=== PATIENT | female | born 1935 | race Caucasian/White ===

== ENCOUNTER 2018-04-20 00:40 | Inpatient (IN) | payer OTHER ==
[~2018-04-20] VITALS: Ht 167.6 cm; Wt 125.4 kg
--- NOTE | 2018-04-20 02:39 | RADIOLOGY REPORT ---
EXAMINATION: RIGHT FOOT AND ANKLE 6 VIEWS CLINICAL INFORMATION: Pain after fall. COMPARISON: None. TECHNIQUE: AP, lateral, oblique views of the right foot were obtained in addition to AP, lateral and oblique views of the right ankle. FINDINGS: There is a transverse fracture through the medial malleolus. There is disruption to the relationship between the distal tibia and the talus. There is an oblique distal fibular fracture. There is diffuse soft tissue swelling. There is a small calcaneal spur at the Achilles insertion site. There is a moderate-sized calcaneal spur along the plantar surface. IMPRESSION: Distal right tibial and fibular fractures with disruption of the relationship between the distal tibia and talus. Diffuse soft tissue swelling. Calcaneal spurs.
[2018-04-20 03:34] LABS: ABSOLUTE BASOPHIL COUNT 0.1 /CUMM (0.0-0.2); ABSOLUTE EOSINOPHIL COUNT 0 /CUMM (0.0-0.7); ABSOLUTE GRANULOCYTE CT 14.9 /CUMM (1.4-6.5); ABSOLUTE LYMPH COUNT 0.9 /CUMM (1.2-3.4); ABSOLUTE MONOCYTE COUNT 0.8 /CUMM (0.10-0.60); BASOPHIL % 0.3 % (0.0-2.0); EOSINOPHIL % 0.2 % (0-5); HEMATOCRIT 39.3 % (37-47); MEAN CORPUSCULAR HGB 30.1 PG (27.0-31.0); MEAN CORPUSCULAR HGB CONC 32.8 G/DL (33.0-37.0); MEAN CORPUSCULAR VOLUME 91.7 FL (81.0-99.0); MEAN PLATELET VOLUME 7.6 FL (7.4-10.4); PLATELET COUNT 250 /CUMM (130-400); RBC DISTRIBUTION WIDTH 15.8 % (11.5-14.5); RED BLOOD CELL CT 4.29 /CUMM (4.20-5.40)
[2018-04-20 03:43] LABS: PT 28.4 SEC (9.4-12.5); PTT 35 SEC (25-37)
[2018-04-20 03:54] LABS: WHITE BLOOD CELL COUNT 16.7 /CUMM (4.8-10.8)
--- NOTE | 2018-04-20 05:01 | RADIOLOGY REPORT ---
EXAMINATION: XR ANKLE, RIGHT CLINICAL INFORMATION: Fracture postreduction. COMPARISON: Same day right ankle radiographs. TECHNIQUE: AP and lateral of the right ankle. FINDINGS: Again identified are distal right tibial and fibular fractures. There is persistent lateral displacement to the talus and marked disruption to the tibiotalar relationship. An overlying cast is in place. IMPRESSION: Persistent disruption to the tibiotalar joint. Distal right tibial and fibular fractures identified with overlying cast in place.
--- NOTE | 2018-04-20 05:27 | History & Physical ---
Vick Alberts 04/20/18 0526: General Information and HPI MD Statement: I have seen and personally examined HUMBLE MORENO and documented this H&P. The patient is a 83 year old F who presented with a patient stated chief complaint of [right sided ankle fracture]. Source of Information: patient, family Exam Limitations: physical impairment History of Present Illness: The patient is an 83-year-old lady with past medical history significant for atrial fibrillation (on warfarin), hypertension, bilateral deep venous thrombosis in lower extremities and pulmonary embolism (10 years ago), gout, and spinal stenosis who presented to ER with fracture of right ankle after a mechanical fall. The patient was home when she was going to make a phone call and could not see the ice cubes on the kitchen floor, and she slipped on the ice cubes and fell backward on the floor. She remembers the whole event, she denies any dizziness, vertigo, shortness of breath, chest pain, palpitation, nausea, vomiting, aura, headache, or unusual feeling before this event. She did not hit her head, or upper extremities. She denies any pain in her body other than right ankle. She denies any signs of orthostatic hypotension, she uses a walker to ambulate, she gets shortness of breath after walking short distance (she has states 10 feet), and she does not walk up or down the stairs due to spinal stenosis that she has. She does not have any history of stroke, cardiac disease, or problem with anesthesia that she had before. She denies any pulmonary disease. She takes 5 mg of warfarin 4 times per week and 2.5 mg 3 times a week. Her primary care physician is Dr. Weston Vargas, and she is states that he is the only doctor that she has. The patient had a misplaced distal right tibial and fibular fractures, which was reduced by emergency department physician and confirmed reduction by a second x- ray. Peripheral perfusion and sensation were checked after reduction which were normal and similar to the left side. Allergy: She is allergic to lisinopril and causes cough Past medical history: Atrial fibrillation (on warfarin), hypertension, bilateral deep venous thrombosis in lower extremities and pulmonary embolism (10 years ago), gout, and spinal stenosis, diabetes mellitus on metformin Past surgical history: Cholecystectomy, left knee replacement, right-sided cataract surgery Family history: Noncontributory Social history: She has a smoke cigars in her 30s for a short period of time, occasional use of alcohol like 1 or 2 drinks every 2 weeks, and she denies any recreational drug use. Allergies/Medications Allergies: Coded Allergies: lisinopril (COUGH 04/20/18) Compliance With Home Meds: GOOD Past History Travel History Traveled to [place] past 21 day No Medical History Neurological: NONE EENT: NONE Cardiovascular: hypertension Respiratory: pulmonary embolism, DVT Gastrointestinal: NONE Hepatic: NONE Renal: NONE Musculoskeletal: L KNEE REPLACEMENT Psychiatric: NONE Endocrine: NONE Influenza Vaccine: 05/05/13 Surgical History Surgical History: cholecystectomy, knee replacement Review of Systems Review of Systems Constitutional: Reports: see HPI. Exam & Diagnostic Data Last 24 Hrs of Vital Signs/I&O Vital Signs Date Time Temp Pulse Resp B/P B/P Pulse O2 O2 Flow FiO2 Mean Ox Delivery Rate 04/20 0625 97.8 74 18 150/63 97 Room Air 04/20 0323 97.9 88 22 144/78 98 04/20 0051 84 20 135/61 97 Physical Exam General Appearance Alert, Oriented X3, Cooperative, Moderate Distress Skin No Rashes, Multiple nevi on back Skin Temp/Moisture Exam: Warm/Dry Sepsis Skin Exam (color): Normal for Ethnicity HEENT Atraumatic, EOMI, Mucous Membr. moist/pink, Lt sided pupil larger than right side, both reactive to light Neck Supple, No JVD Cardiovascular Regular Rate, Normal S1, Normal S2 Lungs Clear to Auscultation, Normal Air Movement Abdomen Normal Bowel Sounds, Soft, No Tenderness, No Hepatospenomegaly Neurological Normal Speech, Strength at 5/5 X4 Ext, Normal Tone, Sensation Intact, Cranial Nerves 3-12 NL, Normal sensation on both feet and LE Extremities Right foot was in splint, good peripheral perfusion in RLE and intact sensation. Vascular Normal Pulses, Pulses Symmetrical Sepsis Peripheral Pulse Location: Dorsalis Pedis Sepsis Peripheral Pulse Exam: Normal Sepsis Cap Refill Exam: <2 Sec Diagnostic Data EKG Results Normal sinus rhythm, low voltage, flattening of T wave in leads III and aVF, Other Results Ankle x-ray: Persistent disruption to the tibiotalar joint. Distal right tibial and fibular fractures identified with overlying cast in place. Assessment/Plan Assessment: The patient is an 83-year-old female, with past medical history significant for atrial fibrillation on warfarin, hypertension, bilateral DVT and pulmonary emboli about 10 years ago, gout, and spinal stenosis who has presented to ED with chief complaint of mechanical fall and fracture of right distal fibula and tibia. Fall and right sided ankle fracture: Based on history and past medical records of this patient this episode of fall was mechanical and there is no medical components on this fall. The EKG has shown flattened T waves in leads III and aVF, but this is a low voltage EKG. this mechanical fall has caused fracture of right distal fibular and tibia. This fracture was displaced, and then reduce in ED. The patient is on warfarin and INR is 2.58, if the patient is planned for surgery for today we need to give the patient something like vitamin K to reverse the INR, or FFP if needed. Plan: Monitor the patient, repeat EKG and troponin, orthopedic surgeon consult was placed, the patient will be held n.p.o. for possible surgery. Leukocytosis: The patient has a white BC count of 16.7, based on the history and physical examination no source of infection is identified. This leukocytosis is reactional to the pain and fracture that she has had. Plan: We will repeat the white BC count once the patient is stabilized regarding to the ankle fracture. Atrial fibrillation: The patient has a history of atrial fibrillation and she was on warfarin for that reason. Plan: We will hold warfarin since the patient might need surgery, we will wait for the decision by orthopedic surgeon. Gout: The patient has a two-year history of gout and is taking allopurinol. Plan: Home medication will be continued. Hypomagnesemia: The patient has a magnesium level of 1.5 Plan: P.o. magnesium will be sore for patient to replete serum magnesium Discrepancy in his pupils size: Left pupil was larger than right. Both were reactive to light. Plan: It might be reasonable to do brain MRI for patient to find any possible causes of this focal neurological deficit as outpatient since this is not acute. Diabetes mellitus: The patient has type 2 diabetes mellitus and is currently on 500 mg of metformin Plan: Metformin will be held and blood sugar will be covered with sliding scale insulin As Ranked By This Provider Problem List: 1. Trimalleolar fracture of ankle, open 2. Displaced trimalleolar fracture of right lower leg, initial encounter for open fracture type I or II Core Measures/Misc (04/21) Acute Coronary Syndrome ACS Diagnosis: No Congestive Heart Failure Congestive Heart Failure Diagnosis No Cerebrovascular Accident CVA/TIA Diagnosis: No VTE (View Protocol) VTE Risk Factors Age>40 No Mechanical VTE Prophylaxis d/t N/A MechProphylax Ordered No VTE Pharm Prophylaxis d/t Surgical Contraindication Sepsis (View protocol) Sepsis Present: No If YES complete Sepsis Event Note If YES complete Sepsis Event Note Rodrigo Vallecillo MD 04/20/18 0724: General Information and HPI Allergies/Medications Home Med list Allopurinol 300 MG TABLET 1 TAB PO DAILY GOUT (Reported) Atorvastatin Calcium 20 MG TABLET 1 TAB PO DAILY HEART (Reported) Cholecalciferol (Vitamin D3) (Vitamin D) 2,000 UNIT CAPSULE 1 CAP PO DAILY VITAMIN SUPPLEMENT (Reported) Hydrocodone/Acetaminophen (Hydrocodon-Acetaminophen 5-325) 5 MG-325 MG TABLET 1 TAB PO BIDP PRN PAIN (Reported) Metformin HCl 500 MG TABLET 1 TAB PO DAILY DM (Reported) Valsartan/Hydrochlorothiazide (Valsartan-Hctz 320-25 MG Tab) 320 MG-25 MG TABLET 1 TAB PO DAILY HTN (Reported) Warfarin Sodium (Coumadin) 5 MG TABLET 1 TAB PO DAILY A.fib (Reported) Core Measures/Misc (04/21) Sepsis (View protocol) If YES complete Sepsis Event Note If YES complete Sepsis Event Note Resident Review Statement Resident Statement: examined this patient, discussed with administration internship, agreed with administration internship, reviewed EMR data (avail), amended to note Other Findings: Patient is an 83-year-old female with past medical history significant for atrial fibrillation on Coumadin, history of pulmonary embolism and DVTs, spinal stenosis, gout, hypertension presenting this admission with chief complaint of fall and right foot pain. Patient reports that prior to coming and she was walking in her kitchen and had not noticed that there were ice cubes on the floor and tripped and fell backwards. Reports landing on her bottom. Denies any head trauma or loss of consciousness. Denies chest pain, palpitations, lightheadedness, dizziness, feeling of warmth prior to falling. Reports significant left foot pain described as a burning sensation. Patient in the ED he received morphine 4 mg IV 1, Zofran 4 mg IV 1, ceftezole and 1 g IV 1, fentanyl 100 g IV 1, Reglan 10 mg IV 1. X-ray showed a tri-malleolar fracture which was splinted. Patient denies any significant cardiac history aside from the atrial fibrillation. Denies history of SD or angina in the past. Reports she has never required a cardiac catheterization. States she currently only follows with her primary care physician, Weston Vargas MD. Patient reports shortness of breath with walking more than 1 block. Reports she cannot take stairs due to significant pain from her spinal stenosis. Patient denies any chest pain, palpitations, shortness breath, abdominal pain, nausea/vomiting, constipation/diarrhea, dysuria/hematuria. Past medical history: As above Past surgical history: Cholecystectomy, knee replacement, bilateral cataract surgery Social history: Quit smoking 50 years ago, occasional alcohol use, denies any illicit drug use, ambulates with a walker, lives with her daughter and grandson Allergies: Lisinopril Medications: Valsartan/hydrochlorothiazide 320/25 mg, metformin 500 mg, warfarin 5 mg, vitamin D, atorvastatin 20 mg, allopurinol Physical exam and labs/imaging as above Patient is an 83-year-old obese female with past medical history of atrial fibrillation on Coumadin, DVT, PE, history of spinal stenosis, gout, hypertension presenting this admission with a right trimalleolar fracture status post mechanical fall. Patient's x-ray findings significant for distal right tibial and fibular fractures along with disruption of the tibiotalar joint. Patient is hemodynamically stable. Labs significant for white count of 16.7 with 89% granulocytes. Sodium of 133, magnesium of 1.5, INR of 2.58. EKG shows sinus rhythm with some nonspecific T-wave changes in leads 23 and aVF. Urinalysis positive for nitrite and leukocyte esterase, 15-25 WBC and bacteria. Chest x-ray was negative for any acute cardiopulmonary process. Patient's calculated RCRI is 0 giving her 0.4% risk of major cardiac event if she were to undergo surgery. Patient however has not seen a stove mechanic and her last ECHO was many years ago. Further information from family revealed patient's health has been deteriorating recently. Patient should be seen by cardiology to obtain cardiac clearance prior to surgery. Problems: 1. Right trimalleolar fracture status post mechanical fall 2. EKG changes showing nonspecific T wave changes in inferior chantell 3. Leukocytosis likely reactive, no signs of infection 4. Asymptomatic bacteriuria 4. Hypomagnesemia 4. History of atrial fibrillation on Coumadin, spinal stenosis, gout, hypertension Plan: Admitted to general med Repeat EKG Ortho consult placed for possible surgery Nothing by mouth with IV fluid hydration Hold coumadin Cardiology consult in AM for cardiac clearance ECHO Replete Magnesium Held oral hypoglycemic agents Novolin q6h with accuchecks PT/OT consult DVT PPx: ALPS on left leg only, pharm held in anticipation for surgery Code: Full code Crystal Valdes 04/20/18 1106: Core Measures/Misc (04/21) Sepsis (View protocol) If YES complete Sepsis Event Note If YES complete Sepsis Event Note Attending MD Review Statement Attending Statement Attending MD Statement: examined this patient, discuss w/resident/PA/METAL DRILLING MACHINE OPERATOR, agreed w/resident/PA/METAL DRILLING MACHINE OPERATOR, discussed with family, reviewed EMR data (avail), discussed with nursing, discussed with case mgmt, reviewed images, amended to note Attending Assessment/Plan: Agree with above resident note. 83 o/f with pmg of afib on warfarin INR therapeutic comes with mechanical fall and right tankle fracture. Admit to telemetry monitoring. Orthopedics and cardiology consult. GI/dvt prophyalxis planned.
--- NOTE | 2018-04-20 07:31 | ED MVC/FALL/TRAUMA COMPLAINT ---
History of Present Illness General Chief Complaint: Fall Stated Complaint: TRIMALLEOLAR FRACTURE Source: patient, family, old records, EMS Exam Limitations: no limitations Vital Signs & Intake/Output Vital Signs & Intake/Output Vital Signs Date Time Temp Pulse Resp B/P B/P Pulse O2 O2 Flow FiO2 Mean Ox Delivery Rate 04/20 0625 97.8 74 18 150/63 97 Room Air 04/20 0323 97.9 88 22 144/78 98 04/20 0051 84 20 135/61 97 Allergies Coded Allergies: lisinopril (COUGH 04/20/18) Triage Note: PER PT WENT TO LET IN PET AND SLIPPED ON WATER AND FELL SUSTAINING INJURY TO RLE, NO HEADSTRIKE NO LOC NO OTHER INJURIES, RLE DEFORMED PULSES PRESENT Triage Nurses Notes Reviewed? yes Onset: Just prior to arrival Duration: minute(s):, constant, continues in ED Timing: recent history Severity: severe Injuries/Fall Location: lower extremity Method of Injury: fall Loss of Consciousness: no loss of consciousness No Modifying Factors: none Associated Symptoms: trouble walking LMP (ages 10-50): post menopausal : No Patient currently breastfeeds: No HPI: Prior to admission patient slipped on wet floor injuring her right ankle patient unable to ambulate requiring assistance to get into bed. She denies other injury fever chills nausea vomiting diarrhea abdominal pain chest pain shortness of breath headache dysuria rash. She has an open wound on the medial aspect of her fracture site. Past History Travel History Traveled to [place] past 21 day No Medical History Any Pertinent Medical History? see below for history Neurological: NONE EENT: NONE Cardiovascular: hypertension Respiratory: pulmonary embolism, DVT Gastrointestinal: NONE Hepatic: NONE Renal: NONE Musculoskeletal: L KNEE REPLACEMENT Psychiatric: NONE Endocrine: NONE Influenza Vaccine: 05/05/13 Surgical History Surgical History: non-contributory Psychosocial History What is your primary language Irish Tobacco Use: Never used Family History Hx Contributory? No Review of Systems Review of Systems Constitutional: Reports: no symptoms. Eyes: Reports: no symptoms. Ears, Nose, Throat, Mouth: Reports: no symptoms. Respiratory: Reports: no symptoms. Cardiovascular: Reports: no symptoms. Gastrointestinal/Abdominal: Reports: no symptoms. Genitourinary: Reports: no symptoms. Musculoskeletal: Reports: see HPI, joint pain, joint swelling. Skin: Reports: see HPI. Neurological/Psychological: Reports: no symptoms. All Other Systems: Reviewed and Negative Physical Exam Physical Exam General Appearance: well developed/nourished, alert, awake, severe distress, obese Head: atraumatic, normal appearance Eyes: Bilateral: normal appearance, PERRL, EOMI, normal inspection. Ears, Nose, Throat, Mouth: hearing grossly normal, moist mucous membrane Neck: normal inspection, supple, full range of motion, normal alignment, no midline tenderness Respiratory: normal breath sounds, chest non-tender, no respiratory distress, quiet respiration, lungs clear Cardiovascular: regular rate/rhythm, normal peripheral pulses, norml femoral pulses equa Peripheral Pulses: 4+ carotid (R), 4+ carotid (L), 1+ dorsalis pedis (R), 2+ dorsalis pedis (L) Gastrointestinal: normal bowel sounds, soft, non-tender, no organomegaly Back: normal inspection, normal range of motion Extremities: evidence of injury, bony-point tenderness, limited range of motion, pain with movement, unable to bear weight Neurologic/Psych: no motor/sensory deficits, awake, alert, oriented x 3, normal gait, normal mood/affect, novelty twister tender II-XII nml as tested Skin: normal color Core Measures ACS in differential dx? No CVA/TIA Diagnosis No Sepsis Present: No Sepsis Focused Exam Completed? No Progress Differential Diagnosis: ext injury Plan of Care: Orders Procedure Date/time Status Nothing by Mouth 04/20 B Active PT Evaluate & Treat 04/20 0625 Active Saline Lock 04/20 0625 Active Pathway - chart 04/20 0625 Active House Staff 04/20 0625 Active EKG 04/20 0625 Active Code Status 04/20 0625 Active Patient Data 04/20 0511 Active OXYGEN SETUP (GEN) 04/20 0416 Active Saline Lock 04/20 0416 Active Admit to inpatient 04/20 0416 Active Vital Signs 04/20 0416 Active Activity/Ambulation 04/20 0416 Active Code Status 04/20 0416 Complete URINALYSIS 04/20 0400 Complete CULTURE,URINE 04/20 0351 Active Mejia, Insertion/Removal/Asses 04/20 0345 Active PARTIAL THROMBOPLASTIN TIME 04/20 0249 Complete PROTHROMBIN TIME 04/20 0249 Complete MAGNESIUM 04/20 0249 Complete COMPREHENSIVE METABOLIC PANEL 04/20 0249 Complete CBC WITHOUT DIFFERENTIAL 04/20 0249 Complete EKG 04/20 0249 Active TYPE & SCREEN (NOT X-MATCH) 04/20 0249 Complete XRY-PORTABLE CHEST XRAY 04/20 UNK Active Lab Add-on Test 04/20 UNK Active VTE Mechanical Prophylaxis 04/20 UNK Active Vital Signs 04/20 UNK Active Intake & Output 04/20 UNK Active Heat/Cold Therapy 04/20 UNK Active Current Medications Sig/Enedelia Start time Last Medication Dose Stop Time Status Admin Polyethylene Glycol 17 GM AT BEDTIME 04/20 2100 AC (Miralax) Senna/Docusate Sodium 1 TAB AT BEDTIME 04/20 2100 AC (Senokot S) Acetaminophen 650 MG Q6P PRN 04/20 0630 AC (Tylenol) Acetaminophen 1,000 MG Q6P PRN 04/20 0630 AC (Ofirmev) Dextrose/Sodium 1,000 ML .[id number] 04/20 06 AC Chloride (D5W-1/2 Normal Saline 1000ML) Hydromorphone HCl 0.5 MG Q4P PRN 04/20 0630 AC 04/20 (Dilaudid) 0638 Ondansetron HCl 4 MG Q6P PRN 04/20 0630 AC (Zofran) Laboratory Tests 04/20/18 0400: Urinalysis LIGHT H, Urine Color YEL, Urine Clarity CLDY H, Urine pH 6.0, Ur Specific Mobile 1.025, Urine Protein NEG, Urine Ketones NEG, Urine Nitrite POS H, Urine Bilirubin NEG, Urine Urobilinogen 0.2, Ur Leukocyte Esterase SMALL H, Ur Microscopic SEDIMENT EXAMINED, Urine WBC 15-25 H, Ur Epithelial Cells RARE, Urine Bacteria PACKD H, Urine Hemoglobin SMALL H, Urine Glucose NEG 04/20/18 0325: Anion Gap 10, Estimated GFR > 60, BUN/Creatinine Ratio 25.6 H, Glucose 150 H, Calcium 9.5, Magnesium 1.5 L, Total Bilirubin 0.8, AST 28, ALT 23, Alkaline Phosphatase 85, Total Protein 6.0 L, Albumin 3.6, Globulin 2.4, Albumin/ Globulin Ratio 1.5, PT 28.4 H, INR 2.58 H, APTT 35, CBC w Diff NO MAN DIFF REQ , RBC 4.29, MCV 91.7, MCH 30.1, MCHC 32.8 L, RDW 15.8 H, MPV 7.6, Gran % 89.0 H, Lymphocytes % 5.7 L, Monocytes % 4.8, Eosinophils % 0.2, Basophils % 0.3, Absolute Granulocytes 14.9 H, Absolute Lymphocytes 0.9 L, Absolute Monocytes 0.8 H, Absolute Eosinophils 0, Absolute Basophils 0.1 Microbiology 04/20 0400 URINE ROUT: Urine Culture - RECD Diagnostic Imaging: Viewed by Me: Radiology Read. Discussed w/RAD: Radiology Read. Radiology Impression: Distal right tibial and fibular fractures with disruption of the relationship between the distal tibia and talus. Diffuse soft tissue swelling. Calcaneal spurs. Initial ED EKG: normal axis, normal intervals, normal p-waves, normal QRS complex, normal sinus rhythm, nonspecific ST T wave chg Rhythm Strip: normal sinus rhythm Departure Departure Disposition: STILL A PATIENT Condition: Stable Clinical Impression Primary Impression: Displaced trimalleolar fracture of right lower leg, initial encounter for open fracture type I or II Referrals: Sam WALKER,Weston Reyes (PCP/Family) Departure Forms: Customer Survey General Discharge Information Admission Note Spoke With: Marlo Rodríguez MD Documentation of Exam: Documentation of any treatments & extenuating circumstances including Concerns Regarding Discharge (functional status, medication knowledge or non-compliance, living conditions, etc.) that warrant an admission rather than observation: IV analgesia podiatry evaluation npo serial lab exam anticoagulation reversal medication adjustment physical therapy continuing care discharge planning Procedures Splinting Location: R lower leg Manual Alignment Performed: Yes Hand-Made Type: orthoglass Splint: modified sugar tong Splint Applied By: splint applied by me Pre-Proc Neuro Vasc Exam: abnormal Post-Proc Neuro Vasc Exam: normal
[2018-04-20 08:28] VITALS: BP 124/54
--- NOTE | 2018-04-20 08:38 | RADIOLOGY REPORT ---
EXAMINATION: XR PORTABLE CHEST CLINICAL INFORMATION: Preoperative COMPARISON: None TECHNIQUE: Portable frontal view of the chest was obtained. FINDINGS: Large body habitus. Minimal linear opacity of focal scar or atelectasis in the lingula. Otherwise, lungs are unremarkable. No pulmonary edema, consolidation or pleural effusion. Cardiac silhouette is normal in size. Atherosclerotic calcification of the uncoiled aortic arch. The bones subjectively appear diffusely osteoporotic. Skeletal findings include moderate osteoarthritis with osteochondral bodies of the right glenohumeral joint. IMPRESSION: No evidence of active cardiopulmonary disease.
[2018-04-20] MEDS ORDERED: VALSARTAN-HCTZ1 EAC3 PO (09:44)
[2018-04-20] MEDS ORDERED: COUMADIN5 M2 PO (09:44)
[2018-04-20] MEDS ORDERED: ALLOPURINOL300 M1 PO (09:45)
[2018-04-20] MEDS ORDERED: METFORMIN HCL500 M3 PO (09:45)
[2018-04-20] MEDS ORDERED: ATORVASTATIN CA20 M1 PO (09:46)
[2018-04-20] MEDS ORDERED: HYDROCODON-ACE1 EAC2 PO (09:46)
[2018-04-20] MEDS ORDERED: VITAMIN D2000 UNIT PO (09:46)
--- NOTE | 2018-04-20 13:26 | Cons- Cardiology ---
General Information and HPI Consulting Request Date of Consult: 04/20/18 Requested By: Marlo Rodríguez MD History of Present Illness: Mrs Bryson is a 83-year-old lady with past medical history significant for atrial fibrillation (on warfarin), hypertension, bilateral deep venous thrombosis in lower extremities and pulmonary embolism (10 years ago), gout, and spinal stenosis who presented to ER with fracture of right ankle after a mechanical fall secondary to stepping on a piece of ice in her kitchen. She denies chest pains, dyspnea, palpitations, orthopnea. Denies history of syncope or dizziness. Denies visible bleeding. She is restricted in her activities by knee and back pain. She can however walk outside, 2 blocks with her walker without chest pain and without needing to take breaks to catch her breath. Allergies/Medications Allergies: Coded Allergies: lisinopril (COUGH 04/20/18) Home Med List: Allopurinol 300 MG TABLET 1 TAB PO DAILY GOUT (Reported) Atorvastatin Calcium 20 MG TABLET 1 TAB PO DAILY HEART (Reported) Cholecalciferol (Vitamin D3) (Vitamin D) 2,000 UNIT CAPSULE 1 CAP PO DAILY VITAMIN SUPPLEMENT (Reported) Hydrocodone/Acetaminophen (Hydrocodon-Acetaminophen 5-325) 5 MG-325 MG TABLET 1 TAB PO BIDP PRN PAIN (Reported) Metformin HCl 500 MG TABLET 1 TAB PO DAILY DM (Reported) Valsartan/Hydrochlorothiazide (Valsartan-Hctz 320-25 MG Tab) 320 MG-25 MG TABLET 1 TAB PO DAILY HTN (Reported) Warfarin Sodium (Coumadin) 5 MG TABLET 1 TAB PO DAILY A.fib (Reported) Current Medications: Current Medications Sig/Enedelia Start time Last Medication Dose Route Stop Time Status Admin Acetaminophen 650 MG Q6P PRN 04/20 0630 AC PO Acetaminophen 1,000 MG Q6P PRN 04/20 0630 AC 04/20 IV 0941 Cefazolin Sodium 0 .STK-MED ONE 04/20 033 DC .ROUTE Cefazolin Sodium 1,000 MG ONCE ONE 04/20 033 DC 04/20 IV 04/20 033 0342 Ceftriaxone Sodium 1,000 MG DAILY 04/20 1015 AC 04/20 IV 1147 Dextrose/Sodium 1,000 ML .[id number] 04/20 0630 AC 04/20 Chloride IV 0843 Fentanyl Citrate 100 MCG ONCE ONE 04/20 033 DC 04/20 IV 04/20 0331 0326 Fentanyl Citrate 0 .STK-MED ONE 04/20 0302 DC .ROUTE Hydromorphone HCl 0 .STK-MED ONE 04/20 0637 DC .ROUTE Hydromorphone HCl 0.5 MG Q4P PRN 04/20 0630 AC 04/20 IV 1142 Insulin Human Regular 0 Q6 04/20 1200 AC 04/20 SC 1149 Magnesium Sulfate 1 GM ONCE ONE 04/20 0930 AC 04/20 Dextrose/Water 100 ML IV 04/20 1329 1040 Metoclopramide HCl 10 MG ONCE ONE 04/20 0430 DC 04/20 IV 04/20 0431 0426 Metoclopramide HCl 0 .STK-MED ONE 04/20 0413 DC .ROUTE Morphine Sulfate 4 MG ONCE ONE 04/20 0200 DC 04/20 IV 04/20 0201 0155 Morphine Sulfate 0 .STK-MED ONE 04/20 0154 DC .ROUTE Ondansetron HCl 0 .STK-MED ONE 04/20 0758 DC .ROUTE Ondansetron HCl 4 MG Q6P PRN 04/20 0630 AC 04/20 IV 0759 Ondansetron HCl 0 .STK-MED ONE 04/20 0318 DC .ROUTE Ondansetron HCl 4 MG ONCE ONE 04/20 0315 DC 04/20 IV 04/20 0316 0324 Polyethylene Glycol 17 GM AT BEDTIME 04/20 2100 AC PO Senna/Docusate Sodium 1 TAB AT BEDTIME 04/20 2100 AC PO Past History Travel History Traveled to [place] past 21 day No Medical History Blood Transfusion Hx: No Neurological: NONE EENT: NONE Cardiovascular: hypertension Respiratory: pulmonary embolism, DVT Gastrointestinal: NONE Hepatic: NONE Renal: NONE Musculoskeletal: L KNEE REPLACEMENT Psychiatric: NONE Endocrine: NONE Surgical History Surgical History: cholecystectomy, knee replacement Psychosocial History Where Do You Live? Home Smoking Status: Never Smoked Exam & Diagnostic Data Vital Signs and I&O Vital Signs Date Time Temp Pulse Resp B/P B/P Pulse O2 O2 Flow FiO2 Mean Ox Delivery Rate 04/20 0749 75 148/70 04/20 06 97.8 74 18 150/63 97 Room Air 04/20 032 97.9 88 22 144/78 98 04/20 0051 84 20 135/61 97 Intake & Output 04/20 1600 04/20 0800 09/16 0000 04/19 1600 04/19 0800 04/19 0000 Intake Total Output Total Balance Patient 270 lb Weight Weight Reported by Patient Measurement Method Physical Exam: General Appearance Alert, Oriented X3, Cooperative, Moderate Distress HEENT Atraumatic, EOMI, Mucous Membr. moist/pink Neck Supple, No JVD, trachea midline Cardiovascular Regular Rate, Normal S1, Normal S2, 2/6 syst ejection murmur Lungs Clear to Auscultation, Normal Air Movement Abdomen Normal Bowel Sounds, Soft, No Tenderness, No Hepatospenomegaly Neurological Normal Speech, Strength at 5/5 X4 Ext, no gross sensory deficits. Extremities good peripheral perfusion in RLE with good capillary refill. some mild dependant edema Labs/Bright Results: Laboratory Tests 04/20 04/20 0400 0325 Chemistry Sodium (137 - 145 mmol/L) 133 L Potassium (3.5 - 5.1 mmol/L) 3.7 Chloride (98 - 107 mmol/L) 97 L Carbon Dioxide (22 - 30 mmol/L) 26 Anion Gap (5 - 16) 10 BUN (7 - 17 mg/dL) 23 H Creatinine (0.5 - 1.0 mg/dL) 0.9 Estimated GFR (>60 ml/min) > 60 BUN/Creatinine Ratio (7 - 25 %) 25.6 H Glucose (65 - 99 mg/dL) 150 H Calcium (8.4 - 10.2 mg/dL) 9.5 Magnesium (1.6 - 2.3 mg/dL) 1.5 L Total Bilirubin (0.2 - 1.3 mg/dL) 0.8 AST (14 - 36 U/L) 28 ALT (9 - 52 U/L) 23 Alkaline Phosphatase (<127 U/L) 85 Total Protein (6.3 - 8.2 g/dL) 6.0 L Albumin (3.5 - 5.0 g/dL) 3.6 Globulin (1.9 - 4.2 gm/dL) 2.4 Albumin/Globulin Ratio (1.1 - 2.2 %) 1.5 Coagulation PT (9.4 - 12.5 SEC) 28.4 H INR (0.90 - 1.19) 2.58 H APTT (25 - 37 SEC) 35 Hematology CBC w Diff NO MAN DIFF REQ WBC (4.8 - 10.8 /CUMM) 16.7 H RBC (4.20 - 5.40 /CUMM) 4.29 Hgb (12.0 - 16.0 G/DL) 12.9 Hct (37 - 47 %) 39.3 MCV (81.0 - 99.0 FL) 91.7 MCH (27.0 - 31.0 PG) 30.1 MCHC (33.0 - 37.0 G/DL) 32.8 L RDW (11.5 - 14.5 %) 15.8 H Plt Count (130 - 400 /CUMM) 250 MPV (7.4 - 10.4 FL) 7.6 Gran % (42.2 - 75.2 %) 89.0 H Lymphocytes % (20.5 - 51.1 %) 5.7 L Monocytes % (1.7 - 9.3 %) 4.8 Eosinophils % (0 - 5 %) 0.2 Basophils % (0.0 - 2.0 %) 0.3 Absolute Granulocytes (1.4 - 6.5 /CUMM) 14.9 H Absolute Lymphocytes (1.2 - 3.4 /CUMM) 0.9 L Absolute Monocytes (0.10 - 0.60 /CUMM) 0.8 H Absolute Eosinophils (0.0 - 0.7 /CUMM) 0 Absolute Basophils (0.0 - 0.2 /CUMM) 0.1 Urines Urinalysis LIGHT H Urine Color (YEL,AMB,STR) YEL Urine Clarity (CLEAR) CLDY H Urine pH (5.0 - 8.0) 6.0 Ur Specific [place] (1.001 - 1.035) 1.025 Urine Protein (NEG,<30 MG/DL) NEG Urine Ketones (NEG) NEG Urine Nitrite (NEG) POS H Urine Bilirubin (NEG) NEG Urine Urobilinogen (0.1 - 1.0 EU/dl) 0.2 Ur Leukocyte Esterase (NEG) SMALL H Ur Microscopic SEDIMENT EXAMINED Urine WBC (0 - 2 /HPF) 15-25 H Ur Epithelial Cells (NONE,FEW) RARE Urine Bacteria (NEG/NONE) PACKD H Urine Hemoglobin (NEG) SMALL H Urine Glucose (N MG/DL) NEG Assessment/Plan Assessment/Plan Maleoar fracture secondary to mechanical fall due to piece of ice on the kitchen floor, without evidence of arrhythmia/syncope. No evidence of unstable coronary artery disease. patient is cleared for surgery from a cardiac standpoint. She does not need to be bridge for anticoagulation, simply wait for INR to be within normal limits, and reinitiate anticoagulation with heparin post op when cleared by surgery, and star coumadin the following day. Consult Acknowledgment - Thank you for your consult request.
[2018-04-20 15:28] VITALS: BP 126/74
[2018-04-20 22:10] VITALS: BP 136/64
[2018-04-21 07:09] VITALS: BP 108/44
--- NOTE | 2018-04-21 07:17 | PN- Housestaff ---
Elizabeth Lee 04/21/18 0717: Subjective Follow-up For: Right ankle fracture Leukocytosis Hx. Atrial fibrillation Subjective: Afebrile overnight. Patient is seen and examined this morning. Patient is in good spirits. Patient reports she does have quite a bit of pain in her right lower extremity from her fracture. Patient has been non-weight bearing and podiatry will assess patient today. Podiatry will be placing a cast on the right lower extremity. Patient reports some episodes of vomiting after receiving morphine. Patient now receiving Diluadid for pain control. Patient otherwise denied any chest pain, palpitations, fevers, chills, and fatigue. Review of Systems Constitutional: Reports: see HPI. Objective Last 24 Hrs of Vital Signs/I&O Vital Signs Date Time Temp Pulse Resp B/P B/P Pulse O2 O2 Flow FiO2 Mean Ox Delivery Rate 04/21 1451 98.3 88 18 134/64 94 Room Air 04/21 0709 99.2 68 12 108/44 95 Room Air 04/20 2210 98.4 69 12 136/64 92 Room Air 04/20 2125 Room Air 04/20 1528 97.7 68 18 126/74 95 Room Air Intake & Output 04/21 1600 04/21 0800 04/21 0000 Intake Total 600 300 Output Total 200 150 Balance 400 150 Intake, IV 600 300 Output, Urine 200 150 Physical Exam General Appearance: Alert, Oriented X3, Cooperative, No Acute Distress Skin: No Rashes, No Breakdown Skin Temp/Moisture Exam: Warm/Dry HEENT: Atraumatic Neck: Supple Cardiovascular: Regular Rate, Normal S1, Normal S2 Lungs: Clear to Auscultation Neurological: Normal Speech Extremities: 1+ edema, right leg in wrapped in elvis bandage Assessment/Plan Assessment: XRY-TWO VIEW RIGHT ANKLE - Persistent disruption to the tibiotalar joint. Distal right tibial and fibular fractures identified with overlying cast in place. 83-year-old female, with past medical history significant for atrial fibrillation on warfarin, hypertension, bilateral DVT and pulmonary emboli about 10 years ago, gout, and spinal stenosis who has presented to ED with chief complaint of mechanical fall and fracture of right distal fibula and tibia. Patient admitted to telemetry floor for the following reasons: #Fall and right sided ankle fracture -Fall, mechanical in nature and there is no medical components on this fall -Fracture of right distal fibular and tibia; displaced, and then reduced in ED -Podiatry consult placed; recommend no surgery at this time due to comorbid conditions, including diabetes mellitus and obesity; patient poor candidate for surgery at this time #Leukocytosis -WBC 16.7 on admission, likely reactive to acute fracture -UA positive for leukocyte esterase and nitrites; urine culture grew GNR; however patient asymptomatic; initially started on Ceftriaxone, subsequently dc' d 04/21 -continue to monitor CBC #Atrial fibrillation -We held warfarin since the patient might need surgery -Podiatry decided not to pursue surgery -follow up PT/INR and restart Coumadin accordingly #Hypomagnesemia -magnesium level of 1.5 on admission -replete Mg as needed #Type 2 diabetes mellitus -Insulin, sliding scale -AccuChecks -Held home dosage of Metformin Regular Diet DVT PPx. Code Status: Full Code Problem List: 1. Displaced trimalleolar fracture of right lower leg, initial encounter for open fracture type I or II 2. Atrial fibrillation Pain Ratin Pain Location: right lower extremity Pain Goal: Remain pain free Pain Plan: prn meds Tomorrow's Labs & Rationales: routine Chica Kam MD 04/21/18 1306: Attending MD Review Statement Attending Statement Attending MD Statement: examined this patient, discuss w/resident/PA/GRAIN ELEVATOR AGENT, agreed w/resident/PA/GRAIN ELEVATOR AGENT, reviewed EMR data (avail) Attending Assessment/Plan: 83F here with tri-malleolar fracture after slipping on a piece of ice, brought to telemetry for T-wave flattening on EKG with no prior for comparison. Patient feels ok, she has some pain in the ankle that is relieved with Dilaudid but does not last long enough. Prior to her injury she was active and without exertional chest pain or dyspnea. 1. Right tri-malleolar fracture 2. Fall, initial Plan - Discontinue telemetry - Podiatry consult - Follow cardiology recommendations - Change Dilaudid from q4p to q3p - Continue home medications - NPO after midnight for surgery - Gentle IV hydration - If surgery tomorrow would give Vitamin K PO today and recheck INR tomorrow morning - DVT PPx
[2018-04-21 08:14] LABS: PT 32.8 SEC (9.4-12.5)
[2018-04-21 08:29] LABS: ABSOLUTE BASOPHIL COUNT 0 /CUMM (0.0-0.2); ABSOLUTE EOSINOPHIL COUNT 0.1 /CUMM (0.0-0.7); ABSOLUTE GRANULOCYTE CT 9.6 /CUMM (1.4-6.5); ABSOLUTE LYMPH COUNT 1.1 /CUMM (1.2-3.4); BASOPHIL % 0.4 % (0.0-2.0); EOSINOPHIL % 0.6 % (0-5); GRANULOCYTE % 80.9 % (42.2-75.2); MEAN CORPUSCULAR HGB 30.2 PG (27.0-31.0); MEAN CORPUSCULAR HGB CONC 32.8 G/DL (33.0-37.0); MEAN PLATELET VOLUME 8.4 FL (7.4-10.4); PLATELET COUNT 238 /CUMM (130-400); RBC DISTRIBUTION WIDTH 16.1 % (11.5-14.5); RED BLOOD CELL CT 3.92 /CUMM (4.20-5.40); WHITE BLOOD CELL COUNT 11.9 /CUMM (4.8-10.8)
[2018-04-21 14:51] VITALS: BP 134/64
--- NOTE | 2018-04-21 16:56 | ULTRASOUND REPORT ---
EXAMINATION: US TRIPLEX LOWER EXTREMITY, RIGHT CLINICAL INFORMATION: There is an 83-year-old female with pain and edema in the leg. Possible deep vein thrombosis. History of deep vein thrombosis. COMPARISON: None TECHNIQUE: Color-flow triplex imaging with spectral analysis and compression Doppler were performed on the lower extremity. The calf veins could not be visualized due to the patient's body habitus. FINDINGS: Respiratory variation, normal compression and augmented flow are noted throughout the lower extremity. The visualized common femoral vein, superficial femoral vein, profunda femoral vein, popliteal vein venous segments show no evidence of deep venous thrombosis. There is no Kim's cyst. IMPRESSION: No evidence of deep venous thrombosis involving the lower extremity.
--- NOTE | 2018-04-21 17:16 | Cons- Podiatry ---
General Information and HPI Consulting Request Date of Consult: 04/21/18 Requested By: Chica Kam MD History of Present Illness: Gypsy is an 83-year-old female who presents status post fall with a right ankle fracture dislocation the patient was admitted to telemetry for observation after noting a supra therapeutic INR and EKG changes. The patient states that she had a mechanical fall and there was no loss of consciousness. The patient states that she lives alone and is independent and ambulatory prior to this recent episode. Allergies/Medications Allergies: Coded Allergies: lisinopril (COUGH 04/20/18) Home Med List: Allopurinol 300 MG TABLET 1 TAB PO DAILY GOUT (Reported) Atorvastatin Calcium 20 MG TABLET 1 TAB PO DAILY HEART (Reported) Cholecalciferol (Vitamin D3) (Vitamin D) 2,000 UNIT CAPSULE 1 CAP PO DAILY VITAMIN SUPPLEMENT (Reported) Hydrocodone/Acetaminophen (Hydrocodon-Acetaminophen 5-325) 5 MG-325 MG TABLET 1 TAB PO BIDP PRN PAIN (Reported) Metformin HCl 500 MG TABLET 1 TAB PO DAILY DM (Reported) Valsartan/Hydrochlorothiazide (Valsartan-Hctz 320-25 MG Tab) 320 MG-25 MG TABLET 1 TAB PO DAILY HTN (Reported) Warfarin Sodium (Coumadin) 5 MG TABLET 1 TAB PO DAILY A.fib (Reported) Past History Medical History Blood Transfusion Hx: No Neurological: NONE EENT: NONE Cardiovascular: hypertension Respiratory: pulmonary embolism, DVT Gastrointestinal: NONE Hepatic: NONE Renal: NONE Musculoskeletal: L KNEE REPLACEMENT Psychiatric: NONE Endocrine: NONE Surgical History Pertinent Surgical History: cholecystectomy, knee replacement Psychosocial History Where Do You Live? Home Smoking Status: Never Smoked Exam & Diagnostic Data Vital Signs and I&O Vital Signs Date Time Temp Pulse Resp B/P B/P Pulse O2 O2 Flow FiO2 Mean Ox Delivery Rate 04/21 1451 98.3 88 18 134/64 94 Room Air 04/21 0709 99.2 68 12 108/44 95 Room Air 04/20 2210 98.4 69 12 136/64 92 Room Air 04/20 2125 Room Air Intake & Output 04/21 1600 04/21 0800 04/21 0000 04/20 1600 04/20 0800 04/20 0000 Intake Total 550 600 300 825 Output Total 650 200 150 800 Balance -100 400 150 25 Intake, IV 150 600 300 825 Intake, Oral 400 Output, Urine 650 200 150 800 Patient 270 lb Weight Weight Reported by Patient Measurement Method Physical Exam: The right ankle is grossly edematous with a fracture blister/abrasion over the medial mall. Patient's neurovascular status grossly intact. Pedal pulses palpable. Assessment/Plan Assessment/Plan Right ankle fracture dislocation. The postreduction films demonstrate a persistent dislocation with the fractured medial malleolus in the medial gutter. A significant angulation noted to the distal fibular fragment. Recommend orthopedic consult. For now keep the patient strictly nonweightbearing with a posterior splint and sugar tong followed by an Luis wrap. May apply Xeroform to the abrasion medially. Consult Acknowledgment - Thank you for your consult request. Attending MD Review Statement Attending Statement Attending MD Statement: examined this patient
--- NOTE | 2018-04-21 18:12 | Cons- Orthopedic ---
General Information and HPI Consulting Request Date of Consult: 04/21/18 Requested By: Chica Kam MD History of Present Illness: This is an 83-year-old female on Coumadin. She had an injury to her right ankle. She was admitted early Saturday morning. Close ankle reduction was performed by the emergency department attending. A page was placed to my service and I presented Saturday morning at around 7:45 AM to see the patient. After speaking with emergency room attending and expressing that the ankle was malreduced I was told that this was not my patient, as the physician on the foot and ankle trauma panel was already notified and that they would be managing the patient. I was called today to see the patient. After speaking with the podiatry attending this injury is out of his scope of practice. The ankle has been splinted ever since the emergency department visit. Allergies/Medications Allergies: Coded Allergies: lisinopril (COUGH 04/20/18) Home Med List: Allopurinol 300 MG TABLET 1 TAB PO DAILY GOUT (Reported) Atorvastatin Calcium 20 MG TABLET 1 TAB PO DAILY HEART (Reported) Cholecalciferol (Vitamin D3) (Vitamin D) 2,000 UNIT CAPSULE 1 CAP PO DAILY VITAMIN SUPPLEMENT (Reported) Hydrocodone/Acetaminophen (Hydrocodon-Acetaminophen 5-325) 5 MG-325 MG TABLET 1 TAB PO BIDP PRN PAIN (Reported) Metformin HCl 500 MG TABLET 1 TAB PO DAILY DM (Reported) Valsartan/Hydrochlorothiazide (Valsartan-Hctz 320-25 MG Tab) 320 MG-25 MG TABLET 1 TAB PO DAILY HTN (Reported) Warfarin Sodium (Coumadin) 5 MG TABLET 1 TAB PO DAILY A.fib (Reported) Past History Medical History Blood Transfusion Hx: No Neurological: NONE EENT: NONE Cardiovascular: hypertension Respiratory: pulmonary embolism, DVT Gastrointestinal: NONE Hepatic: NONE Renal: NONE Musculoskeletal: L KNEE REPLACEMENT Psychiatric: NONE Endocrine: NONE Surgical History Pertinent Surgical History: cholecystectomy, knee replacement Psychosocial History Where Do You Live? Home Smoking Status: Never Smoked Exam & Diagnostic Data Vital Signs and I&O Vital Signs Date Time Temp Pulse Resp B/P B/P Pulse O2 O2 Flow FiO2 Mean Ox Delivery Rate 04/21 1451 98.3 88 18 134/64 94 Room Air 04/21 0709 99.2 68 12 108/44 95 Room Air 04/20 2210 98.4 69 12 136/64 92 Room Air 04/20 2125 Room Air Intake & Output 04/21 1600 04/21 0800 04/21 0000 04/20 1600 04/20 0800 04/20 0000 Intake Total 550 600 300 825 Output Total 650 200 150 800 Balance -100 400 150 25 Intake, IV 150 600 300 825 Intake, Oral 400 Output, Urine 650 200 150 800 Patient 270 lb Weight Weight Reported by Patient Measurement Method Physical Exam: Right lower extremity examination reveals a 1 cm eschar over the medial malleolus with adjacent fracture blistering. The patient has pain with active range of motion. Right lower extremity is neurovascular intact. The patient is obese with diffuse fusiform swelling throughout her entire leg. Imaging Results: X-rays demonstrate a right ankle trimalleolar ankle fracture dislocation. Assessment/Plan Assessment/Plan This is an 83-year-old female with a right ankle trimalleolar ankle fracture dislocation. Postreduction x-rays demonstrate persistent subluxation with an inadequate reduction. A repeat closed reduction was performed by me. A posterior and U-splint was applied. Xeroform and gauze was placed over the medial ankle wound. Repeat x-rays will be performed to ensure adequate reduction. The patient should be nonweightbearing. I will see her in the office in 1 week. She will likely need several weeks for the soft tissue envelope to recover prior to definitive fixation. I have expressed the risk of infection at length with the patient and her family. Consult Acknowledgment - Thank you for your consult request.
--- NOTE | 2018-04-21 20:23 | RADIOLOGY REPORT ---
EXAMINATION: XR ANKLE, RIGHT CLINICAL INFORMATION: Ankle films post reduction. COMPARISON: 04/20/2018 TECHNIQUE: 4 views of the right ankle. FINDINGS: The ankle is now in cast. Once again seen is a fracture of the medial malleolus, posterior malleolus and the lateral malleolus. On the previous lateral radiograph there was anterior dislocation of the tibia with respect to the calcaneus. Now there is normal alignment. IMPRESSION: Reduction of ankle dislocation. Trimalleolar fracture again noted.
[2018-04-22 00:03] VITALS: BP 126/54
[2018-04-22 06:33] VITALS: BP 120/58
--- NOTE | 2018-04-22 07:39 | PN- Housestaff ---
Elizabeth Lee 04/22/18 0739: Subjective Follow-up For: Right ankle fracture Leukocytosis Hx. Atrial fibrillation Subjective: Afebrile overnight. Patient is seen and examined this morning. Patient states she is still having the right lower extremity pain, which is better at rest. Patient states she received pain medication one hour prior and her pain is at a 7 out of 10 at the moment. Patient spoke with Podiatry yesterday and the recommendation at the moment is not to proceed with surgery. Patient otherwise denies any chest pain, palpitations, shortness of breath, fevers, chills, and fatigue. Review of Systems Constitutional: Reports: see HPI. Objective Last 24 Hrs of Vital Signs/I&O Vital Signs Date Time Temp Pulse Resp B/P B/P Pulse O2 O2 Flow FiO2 Mean Ox Delivery Rate 04/22 0633 98.0 70 20 120/58 95 Room Air 04/22 0003 98.7 74 20 126/54 94 Room Air 04/21 1451 98.3 88 18 134/64 94 Room Air Intake & Output 04/22 1600 04/22 0800 04/22 0000 Intake Total 60.5 540 Output Total 175 300 Balance -114.5 240 Intake, IV 10.5 140 Intake, Oral 50 400 Number 0 Bowel Movements Output, Urine 175 300 Patient 275 lb Weight Weight Bed scale Measurement Method Physical Exam General Appearance: Alert, Oriented X3, Cooperative, No Acute Distress Skin: No Rashes, No Breakdown Skin Temp/Moisture Exam: Warm/Dry HEENT: Atraumatic Neck: Supple Cardiovascular: Regular Rate, Normal S1, Normal S2 Lungs: Clear to Auscultation Abdomen: Soft, No Tenderness Neurological: Normal Speech Extremities: right lower extremity in elvis bandage; 1+ edema in b/l LE Assessment/Plan Assessment: XRY-TWO VIEW RIGHT ANKLE - Persistent disruption to the tibiotalar joint. Distal right tibial and fibular fractures identified with overlying cast in place. 83-year-old female, with past medical history significant for atrial fibrillation on warfarin, hypertension, bilateral DVT and pulmonary emboli about 10 years ago, gout, and spinal stenosis who has presented to ED with chief complaint of mechanical fall and fracture of right distal fibula and tibia. Patient admitted to telemetry floor for the following reasons: #Fall and right sided ankle fracture -Fall, mechanical in nature and there is no medical components on this fall -Fracture of right distal fibular and tibia; displaced, and then reduced in ED -Podiatry consult placed; recommend no surgery at this time due to comorbid conditions, including diabetes mellitus and obesity; patient poor candidate for surgery at this time; however Podiatry seeked second opinion from orthopedics -Orthopedics consulted and recommened to plan for ORIF when skin envelope recovers and follow up outpatient within one week; recommended strict elevation above the heart and non-weight bearing of the right lower extremity #Leukocytosis -WBC 16.7 on admission, likely reactive to acute fracture -UA positive for leukocyte esterase and nitrites; urine culture grew GNR; however patient asymptomatic; initially started on Ceftriaxone, subsequently dc' d 04/21 -continue to monitor CBC #Atrial fibrillation -We held warfarin since the patient might need surgery -Podiatry decided not to pursue surgery -follow up PT/INR and restart Coumadin accordingly; restarted Coumadin 5 mg 04/22 #Hypomagnesemia -magnesium level of 1.5 on admission -replete Mg as needed #Type 2 diabetes mellitus -Insulin, sliding scale -AccuChecks -Held home dosage of Metformin Regular Diet DVT PPx. Code Status: Full Code Problem List: 1. Displaced trimalleolar fracture of right lower leg, initial encounter for open fracture type I or II 2. Atrial fibrillation Pain Ratin Pain Location: right leg Pain Goal: Pain 7 or less Pain Plan: prn meds Tomorrow's Labs & Rationales: routine Chica Kam MD 04/22/18 1211: Attending Review Statement Attending Statement Attending MD Statement: examined this patient, discuss w/resident/PA/POKER IN, agreed w/resident/PA/POKER IN, reviewed EMR data (avail) Attending Assessment/Plan: 83F here with tri-malleolar fracture after slipping on a piece of ice, brought to telemetry for T-wave flattening on EKG with no prior for comparison. Prior to her injury she was active and without exertional chest pain or dyspnea. Pain is much improved today and patient looks much better. She has no complaints at this time. 1. Right tri-malleolar fracture 2. Fall, initial Plan - Off telemetry - Follow cardiology recommendations - Change Dilaudid to PO - Continue home medications - Continue Coumadin - Anticipated discharge later today or tomorrow morning pending pain control with PO pain meds and evaluation by physical therapy. Patient will be seen next Saturday as an outpatient by orthopedics who will likely proceed with surgery then.
--- NOTE | 2018-04-22 08:08 | PN- Orthopedic ---
Surgical Brief Attending Note Brief Attending Note: Patient more comfortable today xrays show better alignment A/P - Right ankle trimalleolar ankle fracture dislocation Follow up in my office next week call [phone] for appointment Strict elevation above the heart NWB RLE Plan for ORIF when skin envelope recovers
--- NOTE | 2018-04-22 14:40 | Patient Discharge Instructions ---
Discharge Instructions General Discharge Information You were seen/treated for: Right ankle trimalleolar ankle fracture dislocation You had these procedures: Ankle/Foot X-Ray Watch for these problems: If you have any worsening pain and/or fevers & chills please follow up with your PCP. Special Instructions: Please follow up with your PCP within one week. Please follow up with Orthopedics (Dr. Beltran) within one week. Please continue your home medications. Diet Continue normal diet: No Recommended Diet: Diabetic Activity Full Activity/No Limits: No Activity Self Limited: Yes Acute Coronary Syndrome Inclusion Criteria At DC or during hospital stay patient has or had the following: ACS DIAGNOSIS No Discharge Core Measures Meds if any: Prescribed or Continued at Discharge Meds if any: NOT Prescribed or Continued at Discharge Congestive Heart Failure Inclusion Criteria At DC or during hospital stay patient has or had the following: CHF DIAGNOSIS No Discharge Core Measures Meds if any: Prescribed or Continued at Discharge Meds if any: NOT Prescribed or Continued at Discharge Cerebrovascular accident Inclusion Criteria At DC or during hospital stay patient has or had the following: CVA/TIA Diagnosis No Discharge Core Measures Meds if any: Prescribed or Continued at Discharge Meds if any: NOT Prescribed or Continued at Discharge Venous thromboembolism Inclusion Criteria VTE Diagnosis No VTE Type NONE VTE Confirmed by (Test) NONE Discharge Core Measures - Per Current guidelines, there needs to be overlap - treatment for the first 5 days of Warfarin therapy. - If discharged on Warfarin prior to 5 days of - overlap therapy, the patient will need to be - assessed for post discharge needs including - *Post discharge parental anticoagulation - *Warfarin and/or parental anticoagulation education - *Follow up date to check INR post discharge At least 5 days overlap therapy as Inpatient No Meds if any: Prescribed or Continued at Discharge Note: Overlap Therapy is Warfarin and Anticoagulant Meds if any: NOT Prescribed or Continued at Discharge
[2018-04-22 14:52] VITALS: BP 140/60
[2018-04-22 15:04] LABS: PT 24.5 SEC (9.4-12.5)
--- NOTE | 2018-04-22 15:53 | Discharge Summary ---
Visit Information Visit Dates Admission Date: 04/20/18 Discharge Date: 04/23/18 Hospital Course Course Attending Physician: Chica Kam MD Primary Care Physician: Sam WALKER,Weston Reyes Hospital Course: The patient is an 83-year-old lady with past medical history significant for atrial fibrillation (on warfarin), hypertension, bilateral deep venous thrombosis in lower extremities and pulmonary embolism (10 years ago), gout, and spinal stenosis who presented to ER with fracture of right ankle after a mechanical fall. The patient was home when she was going to make a phone call and could not see the ice cubes on the kitchen floor, and she slipped on the ice cubes and fell backward on the floor. She remembers the whole event, she denies any dizziness, vertigo, shortness of breath, chest pain, palpitation, nausea, vomiting, aura, headache, or unusual feeling before this event. She did not hit her head, or upper extremities. She denies any pain in her body other than right ankle. She denies any signs of orthostatic hypotension, she uses a walker to ambulate, she gets shortness of breath after walking short distance (she has states 10 feet), and she does not walk up or down the stairs due to spinal stenosis that she has. She does not have any history of stroke, cardiac disease, or problem with anesthesia that she had before. She denies any pulmonary disease. She takes 5 mg of warfarin 4 times per week and 2.5 mg 3 times a week. Her primary care physician is Dr. Weston Vargas, and she is states that he is the only doctor that she has. The patient had a misplaced distal right tibial and fibular fractures, which was reduced by emergency department physician and confirmed reduction by a second x- ray. Peripheral perfusion and sensation were checked after reduction which were normal and similar to the left side. Hospital course #Fall and right sided ankle fracture -Fall, mechanical in nature and there is no medical components on this fall -Fracture of right distal fibular and tibia; displaced, and then reduced in ED -Podiatry consulted was suggested to consult orthopedic. Patient was seen by Dr. Beltran orthopedist who suggested nonweightbearing/cast for a week and follow-up in his office for possible surgery. Patient was seen by physical therapy was suggested short-term rehab. #Leukocytosis -WBC 16.7 on admission, likely reactive to acute fracture -UA positive for leukocyte esterase and nitrites; urine culture grew E. coli. Since the patient is asymptomatic antibiotics was not given. [Patient got 1 dose of ceftriaxone in ED.] #Atrial fibrillation -We held warfarin since the patient might need surgery, Which was restarted the day prior to discharge. #Type 2 diabetes mellitus -Insulin, sliding scale -AccuChecks -Held home dosage of Metformin Allergies: Coded Allergies: lisinopril (COUGH 04/20/18) Pertinent Lab Results: Ankle x-ray Persistent disruption to the tibiotalar joint. Distal right tibial and fibular fractures identified with overlying cast in place. Disposition Summary Disposition Principal Diagnosis: Fall with ankle fracture Additional Diagnosis: None Discharge Disposition: SNF Discharge Instructions General Discharge Information Code Status: Full Code Patient's Diet: Diabetic diet Patient's Activity: As tolerated Follow-Up Instructions/Appts: Follow-up with PCP/orthopedist in 1 week Medications at Discharge Discharge Medications: Continue taking these medications: Warfarin Sodium (Coumadin) 5 MG TABLET 1 Tablet ORAL DAILY Comments: Last Taken:04/22/18 Time:1721 Valsartan/Hydrochlorothiazide (Valsartan-Hctz 320-25 MG Tab) 320 MG-25 MG TABLET 1 Tablet ORAL DAILY Comments: NOT GIVEN IN HOSPITAL Metformin HCl (Metformin HCl) 500 MG TABLET 1 Tablet ORAL DAILY Comments: NOT GIVEN IN HOSPITAL Allopurinol (Allopurinol) 300 MG TABLET 1 Tablet ORAL DAILY Comments: NOT GIVEN IN HOSPITAL Atorvastatin Calcium (Atorvastatin Calcium) 20 MG TABLET 1 Tablet ORAL DAILY Comments: NOT GIVEN IN HOSPITAL Hydrocodone/Acetaminophen (Hydrocodon-Acetaminophen 5-325) 5 MG-325 MG TABLET 1 Tablet ORAL 2 x Daily as needed as needed for PAIN Comments: NOT GIVEN IN HOSPITAL Cholecalciferol (Vitamin D3) (Vitamin D) 2,000 UNIT CAPSULE 1 Capsule ORAL DAILY Comments: NOT GIVEN IN HOSPITAL Start taking the following new medications: Hydromorphone HCl (Hydromorphone HCl) 2 MG TABLET 1 Tablet ORAL EVERY SIX HOURS NEEDED as needed for PAIN SCALE 7-10 ( SEVERE) Qty = 15 No Refills Comments: Last Taken:04/23/18 Time:0841 Polyethylene Glycol 3350 (Miralax) 17 GRAM/DOSE POWDER 17 Gram ORAL AT BEDTIME as needed for constipation Qty = 30 No Refills Comments: Last Taken:04/22/18 Time:2102 Copies To: Ruby WALKER,Mani; Sam WALKER,Weston Reyes Attending MD Review Statement Documenting Attending: Chica Kam MD
[2018-04-22 23:18] VITALS: BP 128/70
[2018-04-23 07:23] VITALS: BP 124/64
--- NOTE | 2018-04-23 07:46 | PN- Housestaff ---
Elizabeth Lee 04/23/18 0746: Subjective Follow-up For: Right ankle fracture Leukocytosis Hx. Atrial fibrillation Morbid Obesity Subjective: Afebrile overnight. Patient is seen and examined this morning. Patient states she feels her right lower extremity pain is fairly the same, rated as 7 out of 10 today. Patient also states she has not been having that much of an appetite and therefore has not had a bowel movement in recent memory. Patient otherwise denies any chest pain, palpitations, shortness of breath, fevers, chills, and fatigue. Review of Systems Constitutional: Reports: see HPI. Objective Last 24 Hrs of Vital Signs/I&O Vital Signs Date Time Temp Pulse Resp B/P B/P Pulse O2 O2 Flow FiO2 Mean Ox Delivery Rate 04/23 0723 98.7 70 18 124/64 94 Room Air 04/22 2318 98.2 73 18 128/70 94 Room Air 04/22 1452 98.5 75 20 140/60 92 04/22 1437 Room Air 04/22 1432 Room Air Intake & Output 04/23 0800 04/23 0000 04/22 1600 Intake Total 150 100 700 Output Total 50 100 200 Balance 100 0 500 Intake, Oral 150 100 700 Output, Urine 50 100 200 Patient 276 lb Weight Physical Exam General Appearance: Alert, Oriented X3, Cooperative, No Acute Distress Skin: No Rashes, No Breakdown Skin Temp/Moisture Exam: Warm/Dry HEENT: Atraumatic Neck: Supple, No JVD Cardiovascular: Regular Rate, Normal S1, Normal S2 Lungs: Clear to Auscultation Abdomen: Soft, No Tenderness Neurological: Normal Speech Extremities: right lower extremity in elvis bandage; 1+ edema in b/l LE Assessment/Plan Assessment: XRY-TWO VIEW RIGHT ANKLE - Persistent disruption to the tibiotalar joint. Distal right tibial and fibular fractures identified with overlying cast in place. 83-year-old female, with past medical history significant for atrial fibrillation on warfarin, hypertension, bilateral DVT and pulmonary emboli about 10 years ago, gout, and spinal stenosis who has presented to ED with chief complaint of mechanical fall and fracture of right distal fibula and tibia. Patient admitted to telemetry floor for the following reasons: #Fall and right sided ankle fracture -Fall, mechanical in nature and there is no medical components on this fall -Fracture of right distal fibular and tibia; displaced, and then reduced in ED -Podiatry consult placed; recommend no surgery at this time due to comorbid conditions, including diabetes mellitus and obesity; patient poor candidate for surgery at this time; however Podiatry seeked second opinion from orthopedics -Orthopedics consulted and recommened to plan for ORIF when skin envelope recovers and follow up outpatient within one week; recommended strict elevation above the heart and non-weight bearing of the right lower extremity #Leukocytosis -WBC 16.7 on admission, likely reactive to acute fracture -UA positive for leukocyte esterase and nitrites; urine culture grew GNR; however patient asymptomatic; initially started on Ceftriaxone, subsequently dc' d 04/21 -continue to monitor CBC #Atrial fibrillation -We held warfarin since the patient might need surgery -Podiatry decided not to pursue surgery -follow up PT/INR and restart Coumadin accordingly; restarted Coumadin 5 mg 04/22 #Hypomagnesemia -magnesium level of 1.5 on admission -replete Mg as needed #Type 2 diabetes mellitus -Insulin, sliding scale -AccuChecks -Held home dosage of Metformin #Morbid Obesity -Consistent Carb 2 diet -Recommend dietary and lifestyle changes Consistent Carbohydrate 2 Diet DVT PPx. Code Status: Full Code Problem List: 1. Displaced trimalleolar fracture of right lower leg, initial encounter for open fracture type I or II 2. Atrial fibrillation 3. Morbid obesity Pain Ratin Pain Location: right lower extremity Pain Goal: Pain 7 or less Pain Plan: prn meds Tomorrow's Labs & Rationales: routine Chica Kam MD 04/23/18 1209: Attending Review Statement Attending Statement Attending MD Statement: examined this patient, discuss w/resident/PA/KISS MIXER, agreed w/resident/PA/KISS MIXER, reviewed EMR data (avail) Attending Assessment/Plan: 83F here with tri-malleolar fracture after slipping on a piece of ice, brought to telemetry for T-wave flattening on EKG with no prior for comparison. Prior to her injury she was active and without exertional chest pain or dyspnea. Pain is much improved today and patient looks much better. She has no complaints at this time. 1. Right tri-malleolar fracture 2. Fall, initial Plan - Stable for discharge to [facility] - Follow cardiology recommendations - Change Dilaudid to PO - Continue home medications - Continue Coumadin - Will follow with orthopedics on 04/29/18
[2018-04-23 08:13] LABS: PT 21.7 SEC (9.4-12.5)
[2018-04-23 08:38] LABS: ABSOLUTE BASOPHIL COUNT 0.1 /CUMM (0.0-0.2); ABSOLUTE EOSINOPHIL COUNT 0.2 /CUMM (0.0-0.7); ABSOLUTE GRANULOCYTE CT 7.9 /CUMM (1.4-6.5); ABSOLUTE LYMPH COUNT 1.1 /CUMM (1.2-3.4); ABSOLUTE MONOCYTE COUNT 0.8 /CUMM (0.10-0.60); BASOPHIL % 0.6 % (0.0-2.0); EOSINOPHIL % 1.7 % (0-5); GRANULOCYTE % 79.1 % (42.2-75.2); MEAN CORPUSCULAR HGB 30.3 PG (27.0-31.0); MEAN CORPUSCULAR VOLUME 91.8 FL (81.0-99.0); PLATELET COUNT 226 /CUMM (130-400); RBC DISTRIBUTION WIDTH 15.8 % (11.5-14.5); RED BLOOD CELL CT 3.59 /CUMM (4.20-5.40); WHITE BLOOD CELL COUNT 10.1 /CUMM (4.8-10.8)
[2018-04-23] MEDS ORDERED: OXYCODONE HCL5 M1 PO (10:46)
[2018-04-23] MEDS ORDERED: HYDROMORPHONE HC2 M1 PO ×2 (10:46→10:48)
[2018-04-23] MEDS ORDERED: MIRALAX119 GM PO (10:47)
[2018-04-23 13:52] VITALS: BP 124/64
[2018-04-23 13:54] VITALS: BP 124/64
[2018-04-23 14:39] VITALS: BP 117/56
== END 2018-04-23 14:35 | DRG 563 ==
LOC: ERH 00:40 → 1NO 04:16 → ERHI 04:16 → ENRESERV 06:22 → ENTRNSPT 07:52 → 1NO 08:08 → EDTRNSPTSTS 08:14 → CMPTRNSPT 08:45 → 1NO 04-21 07:34 → ENPENDDIS 04-23 13:30 → 1NO 04-23 14:35
PROVIDERS: Emergency Medicine
PROC: 0QSJXZZ Reposition Right Fibula, External Approach (ICD-10-PCS; principal; 2018-04-20)
PROC: 0QSGXZZ Reposition Right Tibia, External Approach (ICD-10-PCS; principal; 2018-04-20)
DX: S82.851B Displaced trimalleolar fracture of right lower leg, initial encounter for open fracture type I or II (principal); Z68.41 Body mass index [BMI] 40.0-44.9, adult; I10 Essential (primary) hypertension; Z86.718 Personal history of other venous thrombosis and embolism; Z79.01 Long term (current) use of anticoagulants; Z86.711 Personal history of pulmonary embolism; M48.00 Spinal stenosis, site unspecified; M10.9 Gout, unspecified; E83.42 Hypomagnesemia; E11.9 Type 2 diabetes mellitus without complications; Z79.84 Long term (current) use of oral hypoglycemic drugs; E78.5 Hyperlipidemia, unspecified; R82.71 Bacteriuria; E66.01 Morbid (severe) obesity due to excess calories; D72.828 Other elevated white blood cell count; I48.2 Chronic atrial fibrillation; W18.30XA Fall on same level, unspecified, initial encounter; Y92.000 Kitchen of unspecified non-institutional (private) residence as the place of occurrence of the external cause; Z96.652 Presence of left artificial knee joint; Z90.49 Acquired absence of other specified parts of digestive tract; R79.1 Abnormal coagulation profile
CPT/HCPCS: 1NP; 36415; 71045; 73600-RT; 73610-RT; 73630-RT; 81001; 82436; 87086; 93005; 93010; 96374; 96375; 97110-GO; 97161-GP; 97530-GO; J0131; J0690; J0696; J1815; J2405; J2765; J3250; J7042; Q2036